=== PATIENT | male | born 1985 | race American Indian/Alaskan Native ===

== ENCOUNTER 2019-10-24 19:41 | Emergency (ER) | payer SELFPAY ==
--- NOTE | 2019-10-24 20:35 | XRay Report ---
RIGHT ANKLE 3 VIEWS INDICATION / CLINICAL INFORMATION: MAIN: Right Ankle pain; Right ankle pain, pt stated he slid off a ladder at work today. Denies hitti ng head or LOC; previous injury x +5 years ago. COMPARISON: None available. FINDINGS: Mild degenerative change in the ankle joint. No other significant skeletal abnormality. Signer Name: Tyrese Rain MD FACR Signed: 10/24/2019 8:31 PM Workstation Name: [id number]
[2019-10-24 20:45] VITALS: BP 165/87
--- NOTE | 2019-10-24 20:53 | Emergency Department Report ---
ED Lower Extremity HPI - General Chief Complaint: Extremity Injury, Lower Stated Complaint: ANKLE INJURY Time Seen by Provider: 10/24/19 20:41 Source: patient Mode of arrival: Wheelchair Limitations: No Limitations, Other - History of Present Illness Initial Comments: 34-year-old -[place] male presents to the emergency room complaining of right foot and ankle pain that is started this afternoon after he slid fell off a ladder at work today. Patient denies hitting his head or loss of consciousness. Patient denies any past medical history takes no medications on a daily basis and has no known drug allergies. MD Complaint: foot injury -: This evening Injury: Ankle: Right, Foot: Right Type of Injury: unknown Place: work Severity: moderate Severity scale (0 -10): 6 Improves With: nothing Worsens With: weight bearing Context: fall Associated Symptoms: swelling, able to partially bear weight - Related Data Previous Rx's Medication Instructions Recorded Last Taken Type Ibuprofen [Motrin 800 MG tab] 800 mg PO Q8HR PRN #21 tablet 10/24/19 Unknown Rx Allergies Allergy/AdvReac Type Severity Reaction Status Date / Time No Known Allergies Allergy Unverified 10/24/19 19:45 ED Review of Systems ROS: Stated complaint: ANKLE INJURY Other details as noted in HPI Comment: All other systems reviewed and negative ED Past Medical Hx - Past Medical History Previous Medical History?: No - Surgical History Past Surgical History?: No - Social History Smoking Status: Current Every Day Smoker Substance Use Type: Alcohol, Marijuana - Medications Home Medications: Home Medications Medication Instructions Recorded Confirmed Last Taken Type Ibuprofen [Motrin 800 MG tab] 800 mg PO Q8HR PRN #21 tablet 10/24/19 Unknown Rx ED Physical Exam - General Limitations: No Limitations, Other General appearance: alert, in no apparent distress - Head Head exam: Present: atraumatic, normocephalic - Eye Eye exam: Present: normal appearance - ENT ENT exam: Present: mucous membranes moist - Expanded Lower Extremity Exam Right Hip exam: Present: normal inspection Upper Leg exam: Present: normal inspection Knee exam: Present: normal inspection Lower Leg exam: Present: normal inspection Ankle exam: Present: full ROM. Absent: tenderness, swelling Foot/Toe exam: Present: tenderness, swelling Neuro vascular tendon exam: Present: no vascular compromise - Back Exam Back exam: Present: normal inspection, full ROM - Neurological Exam Neurological exam: Present: alert, oriented X3 - Psychiatric Psychiatric exam: Present: normal affect, normal mood - Skin Skin exam: Present: warm, dry, intact, normal color. Absent: rash ED Course Vital Signs 10/24/19 10/24/19 19:45 21:04 Temperature 98.4 F Pulse Rate 109 H Respiratory 18 18 Rate Blood Pressure 165/87 O2 Sat by Pulse 99 Oximetry ED Lower Extremity MDM - Radiology Data Radiology results: report reviewed Print Report Referring Physician:EDGAR DEL VALLEPatient Name:JOSEFA NJPatient ID:[id number] of :[id number]:MaleAccession:[id number] Date:8299-98-88Qsusle Status:Finalized Findings [address] [address] XRay Report Signed Patient: JOSEFA NJ MR#: [id number] : 1985 Acct:[id number] Age/Sex: 34 / M ADM Date: 10/24/19 Loc: ED Attending Dr: Ordering Physician: EDGAR DEL VALLE MD Date of Service: 10/24/19 Procedure(s): XR ankle 2V RT Accession Number(s): [id number] cc: ED MD IVON Fluoro Time In Minutes: RIGHT ANKLE 3 VIEWS INDICATION / CLINICAL INFORMATION: MAIN: Right Ankle pain; Right ankle pain, pt stated he slid off a ladder at work today. Denies hitting head or LOC; previous injury x +5 years ago. COMPARISON: None available. FINDINGS: Mild degenerative change in the ankle joint. No other significant skeletal abnormality. Signer Name: Tyrese Rain MD FACR Signed: 10/24/2019 8:31 PM Workstation Name: [id number] Transcribed By: MS Dictated By: Tyrese Rain MD Electronically Authenticated By: Tyrese Rain MD Signed Date/Time: 10/24/192030 DD/ 25 TD/TT: Print Report Referring Physician:VIC GAGEPatient Name:JOSEFA NJPatient ID:[id number] of :[id number]:MaleAccession:[id number] Date:3501-92-60Ziouwr Status:Finalized Findings [address] [address] XRay Report Signed Patient: JOSEFA NJ MR#: [id number] : 1985 Acct:[id number] Age/Sex: 34 / M ADM Date: 10/24/19 Loc: ED Attending Dr: Ordering Physician: LIBIA MCMAHON Date of Service: 10/24/19 Procedure(s): XR foot 2V RT Accession Number(s): [id number] cc: LIBIA CMMAHON Fluoro Time In Minutes: RIGHT FOOT 2 VIEWS INDICATION / CLINICAL INFORMATION: MAIN: Fall foot injury; Right ankle pain, pt stated he slid off a ladder at work today. Denies hitting head or LOC. COMPARISON: None available. FINDINGS: Degenerative change in the proximal interphalangeal joint of the little toe. No other significant skeletal abnormality. Signer Name: Tyrese Rain MD FACR Signed: 10/24/2019 9:24 PM Workstation Name: [email or web address] Transcribed By: MS Dictated By: Tyrese Rain MD Electronically Authenticated By: Tyrese Rain MD Signed Date/Time: 10/24/192123 - Medical Decision Making 34-year-old -[place] male presents to the emergency room complaining of right foot and ankle pain that is started this afternoon after he slid fell off a ladder at work today. Patient denies hitting his head or loss of consciousness. Patient denies any past medical history takes no medications on a daily basis and has no known drug allergies. Critical care attestation.: If time is entered above; I have spent that time in minutes in the direct care of this critically ill patient, excluding procedure time. ED Disposition Clinical Impression: Fall from ladder Qualifiers: Encounter type: initial encounter Qualified Code(s): W11.XXXA - Fall on and from ladder, initial encounter Sprain of right foot Qualifiers: Encounter type: initial encounter Qualified Code(s): S93.601A - Unspecified sprain of right foot, initial encounter Right ankle sprain Qualifiers: Encounter type: initial encounter Disposition: - TO HOME OR SELFCARE Is pt being admited?: No Does the pt Need Aspirin: No Condition: Stable Additional Instructions: X-rays were negative for any acute findings. Please use crutches as needed to help ambulate use Manjeet bandage. Return back to the emergency room with any worsening pain. Prescriptions: Ibuprofen [Motrin 800 MG tab] 800 mg PO Q8HR PRN #21 tablet PRN Reason: Pain , Severe (7-10) Forms: Work/School Release Form(ED)
[2019-10-24] MEDS ORDERED: IBUPROFEN 600 MG TAB PO ONE (20:55)
--- NOTE | 2019-10-24 21:28 | XRay Report ---
RIGHT FOOT 2 VIEWS INDICATION / CLINICAL INFORMATION: MAIN: Fall foot injury; Right ankle pain, pt stated he slid off a ladder at work today. Denies hitti ng head or LOC. COMPARISON: None available. FINDINGS: Degenerative change in the proximal interphalangeal joint of the little toe. No other significant ske letal abnormality. Signer Name: Tyrese Rain MD FACAltaf Signed: 10/24/2019 9:24 PM Workstation Name: [id number]
== END 2019-10-24 22:08 | disposition home or self-care (01) ==
LOC: ED 19:41
DX: S93.601A Unspecified sprain of right foot, initial encounter (principal); S93.401A Sprain of unspecified ligament of right ankle, initial encounter; F17.200 Nicotine dependence, unspecified, uncomplicated; F12.90 Cannabis use, unspecified, uncomplicated; W11.XXXA Fall on and from ladder, initial encounter; Y93.89 Activity, other specified; Y92.89 Other specified places as the place of occurrence of the external cause; Y99.8 Other external cause status